=== PATIENT | male | born 1960 | race African-American/Black ===

== ENCOUNTER 2018-01-14 20:13 | Emergency (ER) | payer MEDICAID ==
[~2018-01-14] VITALS: Ht 167.6 cm; Wt 65.0 kg
[2018-01-14] MEDS ORDERED: CYCLOBENZAPRINE 10MG TABLET PO ONE (23:00)
[2018-01-14] MEDS ORDERED: IBUPROFEN 600MG TABLET PO ONE (23:00)
[2018-01-15 01:45] VITALS: BP 108/45
== END 2018-01-15 02:30 | disposition home or self-care (01) ==
LOC: ER 21:11
DX: M54.6 Pain in thoracic spine (principal); F17.200 Nicotine dependence, unspecified, uncomplicated; V89.2XXA Person injured in unspecified motor-vehicle accident, traffic, initial encounter; Y93.89 Activity, other specified; Y92.89 Other specified places as the place of occurrence of the external cause; Y99.8 Other external cause status
CPT/HCPCS: 72070; 99284

== ENCOUNTER 2020-10-03 08:21 | Emergency (ER) | payer MEDICAID ==
[~2020-10-03] VITALS: Ht 167.6 cm; Wt 55.0 kg
[2020-10-03] MEDS ORDERED: IBUPROFEN 600MG TABLET PO ONE (09:00)
[2020-10-03] MEDS ORDERED: CEPHALEXIN 250MG CAPSULE PO ONE (09:00)
[2020-10-03 10:12] VITALS: BP 121/80
== END 2020-10-03 10:23 | disposition home or self-care (01) ==
LOC: ER 08:21
DX: L02.31 Cutaneous abscess of buttock (principal); Z48.00 Encounter for change or removal of nonsurgical wound dressing; Z98.890 Other specified postprocedural states; Z96.659 Presence of unspecified artificial knee joint
CPT/HCPCS: 99283